=== PATIENT | female | born 1955 | race Caucasian/White ===

== ENCOUNTER 2016-12-27 10:00 | Outpatient (RCR) | END 2016-12-28 | LOC: NEWBEG 10:00 | PROVIDERS: ATTEND Psychiatry & Neurology Psychiatry | DX: F33.2 Major depressive disorder, recurrent severe without psychotic features (principal); F41.9 Anxiety disorder, unspecified | CPT/HCPCS: 90832; 90837; 90853; 99214 ==

== ENCOUNTER 2017-01-24 10:00 | Outpatient (RCR) | END 2017-01-25 | LOC: NEWBEG 10:00 | PROVIDERS: ATTEND Psychiatry & Neurology Psychiatry | DX: F33.2 Major depressive disorder, recurrent severe without psychotic features (principal); F41.9 Anxiety disorder, unspecified | CPT/HCPCS: 90853; 99214 ==

== ENCOUNTER → 2017-02-25 | Outpatient (RCR) | LOC: NEWBEG 01-26 07:54 | PROVIDERS: ATTEND Psychiatry & Neurology Psychiatry | DX: F33.2 Major depressive disorder, recurrent severe without psychotic features (principal); F41.9 Anxiety disorder, unspecified; F60.3 Borderline personality disorder | CPT/HCPCS: 90853; 99213 ==

== ENCOUNTER 2017-03-21 10:00 | Outpatient (RCR) | END 2017-03-27 | LOC: NEWBEG 10:00 | PROVIDERS: ATTEND Psychiatry & Neurology Psychiatry | DX: F60.3 Borderline personality disorder (principal); F33.2 Major depressive disorder, recurrent severe without psychotic features; F41.9 Anxiety disorder, unspecified | CPT/HCPCS: 90853; 99213 ==

== ENCOUNTER 2017-03-28 09:51 | Outpatient (RCR) | END 2017-04-27 | LOC: NEWBEG 09:51 | PROVIDERS: ATTEND Psychiatry & Neurology Psychiatry | DX: F33.2 Major depressive disorder, recurrent severe without psychotic features (principal); F41.9 Anxiety disorder, unspecified; F60.3 Borderline personality disorder ==